=== PATIENT | male | born 2000 | race African-American/Black ===

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

== ENCOUNTER 2019-04-21 14:46 | Emergency (ER) | payer MEDICAID | END 2019-04-21 16:03 | disposition left against medical advice (07) | LOC: ER 14:46 | DX: H57.10 Ocular pain, unspecified eye (principal); Z53.21 Procedure and treatment not carried out due to patient leaving prior to being seen by health care provider ==

== ENCOUNTER 2019-07-05 13:57 | Emergency (ER) | payer MEDICAID ==
[~2019-07-05] VITALS: Ht 180.3 cm; Wt 68.0 kg
[2019-07-05 14:11] VITALS: BP 133/71
[2019-07-05 16:16] LABS: CLARITY URINE CLOUDY (CLEAR); COLOR URINE DARK YELLOW (YELLOW); KETONES URINE TRACE (NEGATIVE); LEUKOCYTE ESTERASE URINE 3+ (NEGATIVE); NITRITE URINE NEGATIVE (NEGATIVE); OCCULT BLOOD URINE 2+ (NEGATIVE); PH URINE 5.5 (4.5-8.0); PROTEIN URINE 2+ (NEGATIVE); SPECIFIC GRAVITY URINE 1.026 (1.005-1.030)
== END 2019-07-05 17:17 | disposition home or self-care (01) ==
LOC: ER 14:08
DX: N50.89 Other specified disorders of the male genital organs (principal); F12.10 Cannabis abuse, uncomplicated
CPT/HCPCS: 81003; 99283

== ENCOUNTER 2021-02-06 15:04 | Emergency (ER) | payer MEDICAID ==
[~2021-02-06] VITALS: Ht 180.3 cm; Wt 73.0 kg
[2021-02-06 15:19] VITALS: BP 105/65
== END 2021-02-06 15:57 | disposition left against medical advice (07) ==
LOC: ER 15:04
DX: R10.30 Lower abdominal pain, unspecified (principal); Z53.21 Procedure and treatment not carried out due to patient leaving prior to being seen by health care provider